=== PATIENT | male | born 1965 | race Caucasian/White ===

== ENCOUNTER → 2016-12-01 | Outpatient (CLI) | payer OTHER | LOC: BMCIMAGING 12:08 | PROVIDERS: ATTEND Internal Medicine Rheumatology | DX: M17.11 Unilateral primary osteoarthritis, right knee (principal); Z87.312 Personal history of (healed) stress fracture | CPT/HCPCS: 84402-90 ==

== ENCOUNTER → 2017-02-12 | Outpatient (CLI) | payer OTHER | LOC: CIMAGING 11:47 | PROVIDERS: ATTEND Clinical Nurse Specialist | DX: M25.551 Pain in right hip (principal); M25.552 Pain in left hip; G89.29 Other chronic pain; Z96.643 Presence of artificial hip joint, bilateral | CPT/HCPCS: 72114-PO ==